=== PATIENT | male | born 1960 | race Caucasian/White ===

== ENCOUNTER 2021-03-21 13:38 | Emergency (ER) | payer SELFPAY ==
[2021-03-21] MEDS ORDERED: methylPREDNISolone Sod Succ/PF 125 MG/2 ML VIAL ONE (14:58)
[2021-03-21] MEDS ORDERED: diphenhydrAMINE 50 MG/ML VIAL ONE (14:58)
[2021-03-21] MEDS ORDERED: Famotidine/PF 20 mg/2ml Vial ONE (14:59)
[2021-03-21] MEDS ORDERED: EPINEPHrine 1 MG/ML VIAL ONE (15:17)
== END 2021-03-21 17:05 | disposition home or self-care (01) ==
LOC: ERS 13:38
DX: T63.441A Toxic effect of venom of bees, accidental (unintentional), initial encounter (principal); L50.9 Urticaria, unspecified
CPT/HCPCS: 96372; 96374; 96375; J0171; J1200; J2930; S0028